=== PATIENT | male | born 1990 | race Caucasian/White ===

== ENCOUNTER 2023-01-12 17:36 | Emergency (ER) | payer OTHER, SELFPAY ==
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
[2023-01-12 17:35] VITALS: BP 155/116; PULSE 93; RESP 20; TEMP 37.1; O2SAT 96
[2023-01-12] MEDS: TETANUS,DIPHTHERIA,AC PERTUSSIS ADULT (0.5 ML) BOOSTRIX IM (17:42)
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
[2023-01-12 18:42] VITALS: BP 146/96; PULSE 95; RESP 16; O2SAT 100
[2023-01-12 19:11] VITALS: BP 151/97; PULSE 80; RESP 13; TEMP 37.2; O2SAT 99
[2023-01-12] MEDS: MORPHINE SULFATE (*CRX) 4 MG/ML INJ IV PUSH (19:12)
== END 2023-01-12 20:14 | disposition short-term general hospital (02) ==
PROVIDERS: Emergency Provider Emergency Medicine; PCP Family Medicine
DX: S52.571A Other intraarticular fracture of lower end of right radius, initial encounter for closed fracture (principal); Z23 Encounter for immunization; V18.4XXA Pedal cycle driver injured in noncollision transport accident in traffic accident, initial encounter
CPT/HCPCS: 29125; 73110; 90471; 90715; 96374; 99285; J2270